=== PATIENT | male | born 1950 | race Caucasian/White ===

== ENCOUNTER 2022-01-28 11:48 | Emergency (ER) | payer BC, MEDICARE ==
[~2022-01-28] VITALS: Ht 185.4 cm; Wt 115.2 kg
[~2022-01-28 11:48] MED LIST: AMITRIPTYLINE H25 MG PO; ATORVASTATIN CA20 MG PO; DIVALPROEX SOD500 M1 PO; LISINOPRIL10 MG PO; METFORMIN HCL500 MG PO; OXCARBAZEPINE600 MG PO; RISPERIDONE1 MG PO
[2022-01-28 12:55] LABS: BASOPHILS % 0.4 % (0.0-1.0); EOSINOPHILS # (AUTO) 0.3 (0.0-0.4); EOSINOPHILS % 4.9 % (0.0-6.0); HEMATOCRIT 37.1 % (38.2-49.6); HEMOGLOBIN 11.5 g/dL (14.0-18.0); LYMPHOCYTES # (AUTO) 0.8 (1.0-3.2); LYMPHOCYTES % 15.6 % (18.0-39.1); MEAN CORPUSCULAR HEMOGLOBIN 30.7 pg (28-32); MEAN CORPUSCULAR VOLUME 98.9 fL (81-99); MONOCYTES % 18.1 % (4.4-11.3); NEUTROPHILS # (AUTO) 3.2 (2.1-6.9); NEUTROPHILS % 60.8 % (38.7-80.0); PLATELET COUNT 136 x10e3/uL (140-360); RED BLOOD COUNT 3.75 x10e6/uL (4.3-5.7); RED CELL DISTRIBUTION WIDTH 12.8 % (11.7-14.4)
[2022-01-28] MEDS ORDERED: SODIUM CHLORIDE 0.9% 1000ML 1,000 ML IV SCH (13:00)
[2022-01-28 13:09] LABS: ALBUMIN/GLOBULIN RATIO 0.8 (0.8-2.0); ANION GAP 16.6 mmol/L (8-16); CALCIUM 9.1 mg/dL (8.4-10.2); CREATININE, SERUM 1.25 mg/dL (0.72-1.25); POTASSIUM 4.6 mmol/L (3.5-5.1)
[2022-01-28 13:19] LABS: CREATINE KINASE MB 0.8 ng/mL (0-5.0)
== END 2022-01-28 16:53 | disposition home or self-care (01) ==
LOC: ER 11:52
DX: R50.9 Fever, unspecified (principal); E86.9 Volume depletion, unspecified; I95.9 Hypotension, unspecified; R42 Dizziness and giddiness; Z20.822 Contact with and (suspected) exposure to COVID-19; R94.31 Abnormal electrocardiogram [ECG] [EKG]
CPT/HCPCS: 36415; 70450; 71045; 80053; 82550; 82553; 83880; 84484; 85025; 87400; 93005 ×2; 99284; J7030; U0002